=== PATIENT | male | born 1990 | race Caucasian/White ===

== ENCOUNTER 2025-05-01 12:17 | Inpatient (IN) | payer OTHER ==
[2025-05-01 12:41] VITALS: BMI 32.8
[2025-05-01] MEDS ORDERED: POLYETHYLENE GLYCOL (HEALTHYLAX) 3350 17 GM PACKET PO PRN (13:08)
[2025-05-01] MEDS ORDERED: NALOXONE (NARCAN) HCL 4 MG/0.1 ML SPRAY NS PRN (13:08)
[2025-05-01] MEDS ORDERED: P-EPHED 60MG/TRIPROLIDI 2.5MG TABLET PO PRN (13:08)
[2025-05-01] MEDS ORDERED: IBUPROFEN 600 MG TABLET (FP) PO PRN (13:08)
[2025-05-01] MEDS ORDERED: MAGNESIUM HYDROX 2400MG/30ML ORAL SUSPENSION 30 ML CUP PO PRN (13:08)
[2025-05-01] MEDS ORDERED: MAG HYDROX/AL HYDROX/SIMETH 30 ML UNIT-DOSE CUP PO PRN (13:08)
[2025-05-01] MEDS ORDERED: ONDANSETRON *ODT* 4 MG TABLET SL PRN (13:08)
[2025-05-01] MEDS ORDERED: NICOTINE POLACRILEX 2 MG LOZENGE BC PRN (13:08)
[2025-05-01] MEDS ORDERED: LOPERAMIDE HCL 2 MG CAPSULE PO PRN (13:08)
[2025-05-01] MEDS ORDERED: DICYCLOMINE HCL 10 MG CAPSULE PO PRN (13:08)
[2025-05-01] MEDS ORDERED: BENZOCAINE/MENTHOL (CHLORASEPTIC ) LOZENGE MM PRN (13:08)
[2025-05-01] MEDS ORDERED: ACETAMINOPHEN 325 MG TABLET (FP) PO PRN (13:08)
[2025-05-01] MEDS ORDERED: BENZONATATE 200 MG CAPSULE PO PRN (13:08)
[2025-05-01] MEDS ORDERED: IBUPROFEN 400 MG TABLET (FP) PO PRN (13:08)
[2025-05-01] MEDS ORDERED: guaiFENesin 600 MG TABLET.ER (FP) PO PRN (13:08)
[2025-05-01] MEDS ORDERED: BISMUTH SUBSALICYLATE 262 MG/15 ML BTL PO PRN (13:08)
[2025-05-01] MEDS: cloNIDine HCL 0.1 MG TABLET PO PRN (17:21)
[2025-05-01] MEDS: METHOCARBAMOL 500 MG TABLET PO PRN (17:21)
[2025-05-01] MEDS: methaDONE HCL 10 MG TABLET (FOR DETOX USE ONLY) PO ONE (19:24)
[2025-05-01] MEDS ORDERED: methaDONE HCL 10 MG TABLET (FOR DETOX USE ONLY) PO ONE (21:00)
[2025-05-01] MEDS: MELATONIN 5 MG TABLETS PO SCH (22:43)
[2025-05-01] MEDS: THIAMINE 100 MG TABLET PO SCH (22:43)
[2025-05-02] MEDS: PRENATAL VITAMINS W/ FOLIC ACID TABLET (FP) PO SCH (09:18)
[2025-05-02] MEDS: methaDONE HCL 10 MG TABLET (FOR DETOX USE ONLY) PO ONE (09:18)
[2025-05-02 11:32] LABS: HEMATOCRIT 39.9 % (40.1-51.0); HEMOGLOBIN 13.4 g/dL (13.7-17.5); MCHC 33.6 g/dl (32.3-36.5); MEAN CELL VOLUME 89.7 fl (79.0-92.2); MEAN PLT VOLUME 10.6 fl (9.4-12.4); PLATELET COUNT 206 x10^3/uL (163-337); RDW 13.3 % (12.0-15.6)
[2025-05-02 12:01] LABS: POTASSIUM 3.9 mmol/L (3.5-5.1)
[2025-05-02 12:14] LABS: ALBUMIN 3.6 g/dl (3.4-5.0)
[2025-05-02 12:15] LABS: BILIRUBIN,TOTAL 0.9 mg/dL (0.2-1); BLOOD UREA NITROGEN 10.6 mg/dL (7-18)
[2025-05-02 12:16] LABS: TOT PROT 6.8 g/dl (6.4-8.2)
[2025-05-02 12:17] LABS: CREATININE 1.1 mg/dL (0.55-1.3)
[2025-05-02 12:21] LABS: CALCIUM 9.8 mg/dL (8.5-10.1)
[2025-05-03] MEDS: SUVOREXANT 10 MG TABLET PO PRN (22:38)
[2025-05-04] MEDS: methaDONE HCL 10 MG TABLET (FOR DETOX USE ONLY) PO ONE (09:16)
[2025-05-05 07:08] VITALS: BP 135/66; PULSE 73; RESP 16; TEMP 97.3
[2025-05-06] MEDS ORDERED: methaDONE HCL 10 MG TABLET (FOR DETOX USE ONLY) PO ONE (10:00)
== END 2025-05-05 11:18 | disposition home or self-care (01) | DRG 773 ==
LOC: YASAS 12:17 → Y6N 13:42
PROVIDERS: ADMIT Allergy & Immunology; ATTEND Allergy & Immunology
PROC: HZ2ZZZZ Detoxification Services for Substance Abuse Treatment (ICD-10-PCS; principal; 2025-05-01)
DX: F11.23 Opioid dependence with withdrawal (principal); F12.20 Cannabis dependence, uncomplicated; F17.210 Nicotine dependence, cigarettes, uncomplicated; F31.9 Bipolar disorder, unspecified; F39 Unspecified mood [affective] disorder; G47.00 Insomnia, unspecified; M54.50 Low back pain, unspecified; G89.29 Other chronic pain
CPT/HCPCS: 36415; 80053; 80305; 80307; 85027; 86780; 93005; 93010